=== PATIENT | female | born 1975 | race Caucasian/White ===

== ENCOUNTER 2017-02-11 04:14 | Emergency (ER) | payer BC, OTHER ==
[~2017-02-11] VITALS: Ht 170.2 cm; Wt 87.0 kg
[~2017-02-11 04:14] MED LIST: CIPROFLOXACIN PO; DIAZ10TA4 PO; ETHINYL ESTRADIOL PO; FENTANYL PATCH TP; FERROUS FUMARATE PO; NORETHINDRONE ACETATE PO; OXYC-307 PO
[2017-02-11 04:15] VITALS: BP 119/78
[2017-02-11] MEDS ORDERED: KETOROLAC 30 MG/1 ML ONE (05:36)
[2017-02-11] MEDS ORDERED: ONDANSETRON ODT 4 MG ONE (05:36)
[2017-02-11] MEDS ORDERED: HYDROmorphone 1 MG/ML, 1ML ONE (05:36)
[2017-02-11] MEDS ORDERED: KETOROLAC 30 MG/1 ML IM ONE (06:00)
[2017-02-11] MEDS ORDERED: HYDROmorphone 1 MG/ML, 1ML IM ONE (06:00)
[2017-02-11] MEDS ORDERED: ONDANSETRON ODT 4 MG PO ONE (06:00)
== END 2017-02-11 07:21 | disposition home or self-care (01) ==
LOC: ED 07:04
DX: S39.012A Strain of muscle, fascia and tendon of lower back, initial encounter (principal); Z90.49 Acquired absence of other specified parts of digestive tract; X58.XXXA Exposure to other specified factors, initial encounter; Y93.89 Activity, other specified; Y92.89 Other specified places as the place of occurrence of the external cause; Y99.9 Unspecified external cause status
CPT/HCPCS: 72110; 96372; 99284; J1170; J1885; Q0162